=== PATIENT | female | born 2000 | race Caucasian/White ===

== ENCOUNTER 2020-10-20 12:14 | Emergency (ER) | payer OTHER ==
[~2020-10-20 12:14] MED LIST: ELIMITE 5% CREA60 GM TOP; OMNICEF 300 MG300 MG PO
== END 2020-10-20 13:30 | disposition home or self-care (01) ==
LOC: ER1 12:14
DX: R59.0 Localized enlarged lymph nodes (principal)
CPT/HCPCS: 99283